=== PATIENT | male | born 1955 | race Asian ===

== ENCOUNTER 2017-11-06 08:16 | Day surgery (SDC) | payer OTHER ==
[~2017-11-06 08:16] MED LIST: CEFAZOLIN 2 GM/50 ML (PMX) 50 ML IVPB; ROCURONIUM 50 MG INJ; SOD CHLORIDE 0.9% 1,000 ML IV
[2017-11-06] MEDS ORDERED: DIPHENHYDRAMINE 50 MG INJ IV (11:00)
[2017-11-06] MEDS ORDERED: hydrALAzine 20 MG INJ IV (11:00)
[2017-11-06] MEDS ORDERED: OXYCODONE/ACETAMINOPHEN (5/325) TAB PO ×2 (11:00)
[2017-11-06] MEDS ORDERED: LABETALOL HCL 20MG INJ IV (11:00)
[2017-11-06] MEDS ORDERED: MEPERIDINE 25 MG INJ IV (11:00)
[2017-11-06] MEDS ORDERED: HYDROmorphONE (0.2 MG/ML) 10ML SYG IV ×2 (11:00)
[2017-11-06] MEDS ORDERED: LIDOCAINE 2% (SDV) 5 ML INJ ×2 (11:37→11:49)
[2017-11-06] MEDS ORDERED: PROPOFOL 20 ML (11:37)
[2017-11-06] MEDS ORDERED: ONDANSETRON 4 MG INJ (11:37)
[2017-11-06] MEDS ORDERED: MIDAZOLAM 1 MG/ML 2 ML INJ (11:37)
[2017-11-06] MEDS ORDERED: METOCLOPRAMIDE 10 MG INJ (11:37)
[2017-11-06] MEDS ORDERED: ROPIVACAINE 0.2% 20 ML VIAL (11:37)
[2017-11-06] MEDS ORDERED: CEFAZOLIN 1 GM INJ (12:04)
[2017-11-06] MEDS: BUPIVACAINE 0.25% (MPF) 30 ML INJ (12:23)
[2017-11-06] MEDS: POLYMYXIN/BACITRACIN 1L IRRIG (12:24)
[2017-11-06] MEDS ORDERED: NEOSTIGMINE 3 MG/3 ML SYRINGE (12:39)
[2017-11-06] MEDS ORDERED: GLYCOPYRROLATE 0.4 MG INJ (12:39)
[2017-11-06] MEDS: ONDANSETRON 4 MG INJ IV (13:34)
[2017-11-06] MEDS: HYDROmorphONE (0.2 MG/ML) 10ML SYG IV ×2 (13:35→13:49)
[2017-11-06] MEDS: HYDROCODONE/APAP (5/325) TAB PO (13:41)
== END 2017-11-06 15:08 | disposition home or self-care (01) ==
LOC: SDS 08:16
DX: K40.30 Unilateral inguinal hernia, with obstruction, without gangrene, not specified as recurrent (principal); E11.9 Type 2 diabetes mellitus without complications; I10 Essential (primary) hypertension
CPT/HCPCS: 49507; 82962